=== PATIENT | male | born 1980 | race African-American/Black ===

== ENCOUNTER 2021-04-05 03:47 | Emergency (ER) | payer SELFPAY ==
[~2021-04-05] VITALS: Ht 172.7 cm; Wt 94.3 kg
== END 2021-04-05 04:32 | disposition home or self-care (01) ==
LOC: ER 03:47
DX: F12.929 Cannabis use, unspecified with intoxication, unspecified (principal); R11.2 Nausea with vomiting, unspecified; R41.0 Disorientation, unspecified
CPT/HCPCS: 99283; A9270